=== PATIENT | male | born 1960 | race Caucasian/White ===

== ENCOUNTER 2016-12-25 03:33 | Emergency (ER) | payer BC, OTHER ==
[2016-12-25 03:42] VITALS: BP 156/97; PULSE 82; TEMP 98; BMI 25.8
--- NOTE | 2016-12-25 03:43 | PDOC ---
History of Present Illness - General Chief Complaint: Pain, Acute Stated Complaint: PAIN TO RIGHT SHOULDER Time Seen by Provider: 12/25/16 03:42 History Source: Patient Exam Limitations: No Limitations - History of Present Illness Initial Comments: 12/25/16 03:46 This is a 56-year-old male who comes in complaining of pain radiating down the back of his upper shoulder and the back of his arm. Patient said that it woke him up and that he had a recent prostate biopsy and was told he couldn't take any ibuprofen or anti-inflammatories for one week afterwards. Patient said that the week will be up in 2 days so didn't want to take anything. Patient otherwise denies any ALLERGIES to medication. Patient denies any trauma or injury to the neck or upper back area. Patient denies history of similar pain in the past. Patient denies any chest pain, shortness of breath, nausea, diaphoresis, fever, chills, cough, congestion. PAST MEDICAL HISTORY: no significant history PAST SURGICAL HISTORY: no significant history FAMILY HISTORY: no pertinant history SOCIAL HISTORY: Pt lives with family and is employed. MEDICATIONS: reviewed ALLERGIES: As per nursing notes Review of Systems General: No fevers or chills, no weakness, no weight loss HEENT: No change in vision. No sore throat,. No ear pain CardioVascular: No chest pain or shortness of breath Respiratory:No cough, or wheezing. Gastrointestinal: no nausea, vomitting, diarrhea or constipation, No rectal bleeding Genitourinary: No dysuria, hematuria, or frequency Musculoskeletal: Right upper back and shoulder and arm pain Neurologic: No headache, vertigo, dizziness or loss of consciousness Psychiatric: nor depression Skin: No rashes or easy bruising Endocrine: no increased thirst or abnormal weight change Allergic: no skin or latex allergy All other systems reviewed and normal Exam: General: Well-nourished well-developed individual, no acute distress HEENT: Throat: Normal, tonsils normal, no erythema or exudate Neck: Supple, no meningeal signs, no lymphadenopathy, there is no pain on palpation of the cervical spine. Eyes::Pupils equal reactive and round, extraocular motion intact Chest: Nontender to palpation Cardiac: S1-S2 normal, regular rate and rhythm, no murmurs rubs or gallops Respiratory: Lungs clear to auscultation bilateral Back: There is some tenderness and spasm on palpation of the upper back muscles and posterior shoulder muscles. Extremities: Warm, dry, no cyanosis, clubbing, or edema., There is full range of motion of the shoulder with minimal discomfort. Skin: No rashes Neuro: Alert and oriented x3, nonfocal exam, grossly intact, normal gait Psych: Normal mood and affect Assessment and plan: This is a 56-year-old male who comes in complaining of posterior upper back and posterior shoulder pain radiating down the arm. Patient today for control or history of similar pain in the past. Patient was given a Percocet as he can't take any NSAIDs and told to follow-up with the orthopedist if not improved in a couple a days. Patient discharged home with prescription for an additional 12 Percocet Past History - Past Medical History Allergies/Adverse Reactions: Allergies Allergy/AdvReac Type Severity Reaction Status Date / Time No Known Drug Allergies Allergy Verified 12/25/16 03:34 HAYFEVER Allergy Uncoded 08/02/15 09:06 Home Medications: Ambulatory Orders Tamsulosin HCl [Flomax] 0.4 mg PO DAILY #15 cap.er.24h 08/02/15 Allopurinol [Zyloprim -] 100 mg PO DAILY 12/25/16 Levofloxacin [Levaquin -] 500 mg PO DAILY 12/25/16 Loratadine [Claritin] 10 mg PO DAILY 12/25/16 Oxycodone HCl/Acetaminophen [Percocet 5-325 mg Tablet] 1 - 2 tab PO Q4H #20 tablet MDD 8 12/25/16 Anemia: No Asthma: No Cancer: No Cardiac Disorders: No CVA: No COPD: No CHF: No Dementia: No Diabetes: No GI Disorders: No Disorders: Yes (KIDNEY STONES) HTN: No Hypercholesterolemia: Yes Liver Disease: No Seizures: No Thyroid Disease: No - Surgical History Orthopedic Surgery: Yes (RIGHT ACL REPAIR) - Suicide/Smoking/Psychosocial Hx Smoking History: Former smoker Have you smoked in the past 12 months: No Number of Cigarettes Smoked Daily: 0 Information on smoking cessation initiated: No Hx Alcohol Use: No Drug/Substance Use Hx: No Substance Use Type: None *Physical Exam - Vital Signs Last Vital Signs Temp Pulse Resp BP Pulse Ox 98 F 82 16 156/97 98 12/25/16 03:37 12/25/16 03:37 12/25/16 03:37 12/25/16 03:37 12/25/16 03:37 *DC/Admit/Observation/Transfer Diagnosis at time of Disposition: Cervical radiculopathy - Discharge Dispostion Disposition: HOME Condition at time of disposition: Stable Admit: No - Patient Instructions Additional Instructions: For the pain you can take Percocet one tablet as often as every 4-6 hours if needed. The Percocet will make you drowsy nursing cannot drive or go to work while taking the Percocet. Follow-up with an orthopedist in 3-4 days if not improved. If you need an orthopedist call Dr. Robertson [phone]. Return to the emergency department immediately with ANY new, persistent or worsening symptoms. Continue any medications as previously prescribed by your physician. You should follow up with your primary doctor as soon as possible regarding today's emergency department visit. . Please make sure your doctor reviews the results of your emergency evaluation. Thank you for coming to the Emergency Department today for your care. It was a pleasure to see you today. Please note that your evaluation is INCOMPLETE until you follow-up with your doctor.
== END 2016-12-25 04:02 | disposition home or self-care (01) ==
LOC: FER 03:33
DX: E78.00 Pure hypercholesterolemia, unspecified (principal)
CPT/HCPCS: 99281-25

== ENCOUNTER 2017-04-14 02:34 | Emergency (ER) | payer BC, OTHER ==
[2017-04-14 02:44] VITALS: BP 130/85; PULSE 88; TEMP 98.9; BMI 25.8
--- NOTE | 2017-04-14 02:52 | PDOC ---
History of Present Illness - General Chief Complaint: Cold Symptoms Stated Complaint: DRY COUGH AND BACK PAIN X 2 DAYS - History of Present Illness Initial Comments: 04/14/17 20:43 presents with fever, cough, back pain x 2 days has not taken flu shot no relief with nsaids no dysuria no n/v pmh: denies fhx: noncontrib ros: reviewed and otherwise negative o/e NAD no rash op clear mmm nonicteric no adenopahty cta rrr no murmur abd nontender no cvaty a/p ACE nsiads tamiflu Past History - Past Medical History Allergies/Adverse Reactions: Allergies Allergy/AdvReac Type Severity Reaction Status Date / Time No Known Drug Allergies Allergy Verified 12/25/16 03:34 HAYFEVER Allergy Uncoded 08/02/15 09:06 Home Medications: Ambulatory Orders Tamsulosin HCl [Flomax] 0.4 mg PO DAILY #15 cap.er.24h 08/02/15 Allopurinol [Zyloprim -] 100 mg PO DAILY 12/25/16 Loratadine [Claritin] 10 mg PO DAILY 12/25/16 Oxycodone HCl/Acetaminophen [Percocet 5-325 mg Tablet] 1 - 2 tab PO Q4H #20 tablet MDD 8 12/25/16 levoFLOXacin [Levaquin -] 500 mg PO DAILY 12/25/16 Oseltamivir Phosphate [Tamiflu] 75 mg PO BID 5 Days #10 capsule 04/14/17 Anemia: No Asthma: No Cancer: No Cardiac Disorders: No CVA: No COPD: No CHF: No Dementia: No Diabetes: No GI Disorders: No Disorders: Yes (KIDNEY STONES) HTN: No Hypercholesterolemia: Yes Liver Disease: No Seizures: No Thyroid Disease: No - Surgical History Orthopedic Surgery: Yes (RIGHT ACL REPAIR) - Suicide/Smoking/Psychosocial Hx Smoking History: Former smoker Have you smoked in the past 12 months: No Number of Cigarettes Smoked Daily: 0 Information on smoking cessation initiated: Yes Hx Alcohol Use: No Drug/Substance Use Hx: No Substance Use Type: None *Physical Exam - Vital Signs Last Vital Signs Temp Pulse Resp BP Pulse Ox 98.9 F 88 18 130/85 99 04/14/17 02:39 04/14/17 02:39 04/14/17 02:39 04/14/17 02:39 02/11/18 02:39 *DC/Admit/Observation/Transfer Diagnosis at time of Disposition: Influenza - Discharge Dispostion Disposition: HOME Condition at time of disposition: Good - Prescriptions Prescriptions: Oseltamivir Phosphate [Tamiflu] 75 mg PO BID 5 Days #10 capsule - Referrals - Patient Instructions Printed Discharge Instructions: DI for Viral Upper Respiratory Infection -- Adult - Post Discharge Activity
== END 2017-04-14 02:54 | disposition home or self-care (01) ==
LOC: FER 02:34
DX: J11.1 Influenza due to unidentified influenza virus with other respiratory manifestations (principal); E78.00 Pure hypercholesterolemia, unspecified; Z87.891 Personal history of nicotine dependence; Z87.442 Personal history of urinary calculi
CPT/HCPCS: 99282-25

== ENCOUNTER 2017-07-08 08:55 | Day surgery (SDC) | payer BC, OTHER ==
[2017-07-08 09:26] VITALS: TEMP 97.7
[2017-07-08] MEDS ORDERED: PROMETHAZINE HCL 25 MG/1 ML VIAL IVPUSH PRN (11:42)
[2017-07-08] MEDS ORDERED: ONDANSETRON 4 MG/2 ML VIAL IVPUSH PRN (11:42)
[2017-07-08] MEDS ORDERED: oxyCODONE HCL 5 MG TABLET PO PRN (11:42)
[2017-07-08] MEDS ORDERED: LACTATED RINGERS SOLUTION 1,000 ML IV SCH (11:45)
[2017-07-08] MEDS ORDERED: MIDAZOLAM HCL 2 MG/2 ML SINGLE DOSE VIAL ONE ×2 (11:47)
--- NOTE | 2017-07-08 12:51 | OP ---
Operative Note - Note: Operative Date: 07/08/17 Pre-Operative Diagnosis: Left Kidney stone Operation: Left ESWL Findings: 10 mm mid pole stone left Post-Operative Diagnosis: Same as Pre-op Surgeon: Marcus Law Anesthesia: Fractional
[2017-07-08 15:16] VITALS: BP 110/80; PULSE 70
--- NOTE | 2017-07-08 23:06 | OP ---
DATE OF OPERATION: 07/08/2017 PREOPERATIVE DIAGNOSIS: Left kidney stone. POSTOPERATIVE DIAGNOSIS: Left kidney stone. PROCEDURE: Left extracorporeal shock wave lithotripsy. ATTENDING: Nithin Law M.D. ANESTHESIA: Fractional. OPERATION: Patient was brought in the operating room, placed in a supine position on the operating room table. Ultrasonography and fluoroscopy were performed. A 10-mm left mid pole stone was identified. At this point anesthesia and preoperative antibiotics were administered. Shockwave lithotripsy was then started. 3000 impulses of 20 joules of power were administered to the stone with excellent fragmentation of the stone under real time fluoroscopy and ultrasonography. No complications noted. DISPOSITION: Disposition of the patient to the recovery room. NITHIN QURESHI M.D. [id number]
== END 2017-07-08 13:45 | disposition home or self-care (01) ==
LOC: JASU-SURG 08:55
PROVIDERS: ATTEND Urology
PROC: 0TF4XZZ Fragmentation in Left Kidney Pelvis, External Approach (ICD-10-PCS; principal; 2017-07-08 11:00)
DX: N20.0 Calculus of kidney (principal)

== ENCOUNTER 2018-06-17 08:21 | Day surgery (SDC) | payer BC, OTHER ==
[2018-06-17 08:46] VITALS: BMI 25.8
[2018-06-17 09:35] VITALS: TEMP 97.6
[2018-06-17 10:33] VITALS: BP 121/74; PULSE 65
== END 2018-06-17 10:33 | disposition home or self-care (01) ==
LOC: JASU-ENDO 08:21
PROVIDERS: ATTEND Internal Medicine Gastroenterology
PROC: 0DJD8ZZ Inspection of Lower Intestinal Tract, Via Natural or Artificial Opening Endoscopic (ICD-10-PCS; principal; 2018-06-17 09:00)
DX: Z12.11 Encounter for screening for malignant neoplasm of colon (principal); K57.30 Diverticulosis of large intestine without perforation or abscess without bleeding; K64.8 Other hemorrhoids

== ENCOUNTER 2018-08-15 09:13 | Emergency (ER) | payer BC, OTHER | END 2018-08-15 12:19 | disposition home or self-care (01) | LOC: FER 09:13 ==

== ENCOUNTER 2019-03-24 11:07 | Day surgery (SDC) | payer BC, OTHER ==
[2019-03-20 16:41] VITALS: BMI 26.6
[2019-03-24 14:02] VITALS: TEMP 97.5
[2019-03-24 14:11] VITALS: BP 117/78; PULSE 64
--- NOTE | 2019-03-26 11:40 | PATH ---
Surgical Pathology Report Patient Name: FRANCIS CLINE Med. Rec. #: [id number] /Age/Gender: 1960 (Age: 58) / M Account: [id number] Location: [facility] SURGICAL Taken: 03/24/2019 Received: 03/25/2019 Reported: 03/26/2019 Physicians: Moiz Peña D.O. Specimen(s) Received BODY OF STOMACH Clinical History Upper abdominal pain Postoperative diagnosis: Gastritis Final Diagnosis STOMACH, BODY, BIOPSY: GASTRIC BODY MUCOSA WITH MILD CHRONIC GASTRITIS. IMMUNOHISTOCHEMICAL STAIN FOR H. PYLORI IS NEGATIVE. Electronically Signed Shadia Fairbanks M.D. Gross Description Received in formalin, labeled "biopsy body of stomach" are 3 pérez, irregular portions of soft tissue ranging from 0.1-0.4 cm. in greatest dimension. The specimens are submitted in toto in one cassette. /03/25/2019 saudi03/25/2019
== END 2019-03-24 14:41 | disposition home or self-care (01) ==
LOC: JASU-SURG 11:07
PROVIDERS: ATTEND Internal Medicine Gastroenterology
PROC: 0DB68ZX Excision of Stomach, Via Natural or Artificial Opening Endoscopic, Diagnostic (ICD-10-PCS; principal; 2019-03-24 12:15)
DX: K29.50 Unspecified chronic gastritis without bleeding (principal)

== ENCOUNTER 2019-10-01 20:28 | Emergency (ER) | payer BC, OTHER ==
[2019-10-01] MEDS ORDERED: KETOROLAC TROMETHAMINE 30 MG/1 ML VIAL IM ONE (20:37)
[2019-10-01] MEDS ORDERED: diazePAM 5 MG TABLET PO ONE (20:38)
[2019-10-01] MEDS ORDERED: KETOROLAC TROMETHAMINE 30 MG/1 ML VIAL ONE (20:40)
[2019-10-01] MEDS ORDERED: diazePAM 5 MG TABLET ONE ×2 (20:40→20:44)
[2019-10-01 20:42] VITALS: BP 158/83; PULSE 88; TEMP 97.8; BMI 26.1
--- NOTE | 2019-10-01 21:09 | PDOC ---
Documentation entered by Juan Antonio Pizarro SCRIBE, acting as scribe for Elen Jennings MD. Elen Jennings MD: This documentation has been prepared by the Juarez harper Xhesika, SCRIBE, under my direction and personally reviewed by me in its entirety. I confirm that the documentation accurately reflects all work, treatment, procedures, and medical decision making performed by me. History of Present Illness - General Chief Complaint: Injury Stated Complaint: LOW BACK PAIN History Source: Patient Exam Limitations: No Limitations - History of Present Illness Initial Comments: 10/01/19 20:38 The patient is a 59y/o M with no PMH who presents to the ED with lower back pain since 10:45PM. 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 Pt states he took ibuprofen at around 11AM after the incident, pain subsided for a few minutes but it eventually came back. Pt states his pain radiates down his L leg, is 10/10 in severity, and worse with movements. Pt denies any LE numbness or tingling. Denies any bladder/ urinary incontinence. Allergies: NKDA PCP: Dr. Chatterjee Past History - Medical History Allergies/Adverse Reactions: Allergies Allergy/AdvReac Type Severity Reaction Status Date / Time No Known Drug Allergies Allergy Verified 10/01/19 20:32 HAYFEVER Allergy Uncoded 10/01/19 20:32 Home Medications: Ambulatory Orders Cetirizine HCl [Zyrtec] 10 mg PO ASDIR 10/01/19 Ibuprofen 600 mg PO TID PRN #90 tablet MDD 3 10/01/19 Anemia: No Asthma: No Cancer: No Cardiac Disorders: No CVA: No COPD: No CHF: No DVT: No Dementia: No Diabetes: No Dialysis: No GI Disorders: Yes (Diverticulosis) Disorders: Yes (BPH, KIDNEY STONES) HTN: Yes Hypercholesterolemia: Yes Kidney Stones: Yes Liver Disease: No Psychiatric Problems: No Seizures: No Thyroid Disease: No Lung CA: No - Surgical History Abdominal Surgery: No Appendectomy: No Cardiac Surgery: No Cholecystectomy: No Gastric Stapling: No GI Surgery: No Lung Surgery: No Neurologic Surgery: No Orthopedic Surgery: Yes (RIGHT ACL REPAIR) - Psycho-Social/Smoking History Smoking History: Never smoked Have you smoked in the past 12 months: No Number of Cigarettes Smoked Daily: 0 Information on smoking cessation initiated: No - Substance Abuse Hx (Audit-C & DAST Scrn) How often the patient has a drink containing alcohol: Never Score: In Men: 4 or > Positive; In Women: 3 or > Positive: 0 Screen Result (Pos requires Nsg. Audit-10AR): Negative In the last yr the pt used illegal drug/Rx for NonMed reason: No Score: Yes response is considered Positive: 0 Screen Result (Positive result requires Nsg. DAST-10): Negative Review of Systems - Review of Systems Able to Perform ROS?: Yes Comments:: 10/01/19 20:42 GENERAL/CONSTITUTIONAL: No fever or chills. No weakness. HEAD, EYES, EARS, NOSE AND THROAT: No change in vision. No ear pain or discharge. No sore throat. CARDIOVASCULAR: No chest pain or shortness of breath. RESPIRATORY: No cough, wheezing, or hemoptysis. GASTROINTESTINAL: No nausea, vomiting, diarrhea or constipation. GENITOURINARY: No dysuria, frequency, or change in urination. MUSCULOSKELETAL: No joint or muscle swelling or pain. No neck pain. +Lower back pain radiating down L leg. SKIN: No rash NEUROLOGIC: No headache, vertigo, loss of consciousness, or change in strength/sensation. ENDOCRINE: No increased thirst. No abnormal weight change. HEMATOLOGIC/LYMPHATIC: No anemia, easy bleeding, or history of blood clots. ALLERGIC/IMMUNOLOGIC: No hives or skin allergy. *Physical Exam - Vital Signs Last Vital Signs Temp Pulse Resp BP Pulse Ox 97.8 F 88 16 158/83 98 10/01/19 20:28 10/01/19 20:28 10/01/19 20:28 10/01/19 20:28 10/01/19 20:28 - Physical Exam 10/01/19 20:58 awake alert lungs clear bilat heart rrr no mrg abd soft nt nd ext wwp. no edema. no calf tenderness. skin warm and dry. no midline spinal tenderness. paraspinal muscle spasm left lumbosacral region. 5/5 lower extremity strength. sensation intact bilat . no saddle anesthesia, . alert oriented x 3. gait normal. Medical Decision Making - Medical Decision Making 10/01/19 21:02 59 yo male with no pmhx here wiht low back injury while crawling over elevator at work, felt pop, now pain. happened around 10 am, took motrin last at 11 am. now pain. no new weakness or numbness. no bowel or bladder incontinence. no h/o prior back injury. pain improved with motrin but has since recurred. on exam pt with paraspinal lumbosacral tenderenss to left. n/v intact. plan motrin, muscle relaxer. dc home. fu with pcp. Discharge - Discharge Information Problems reviewed: Yes Clinical Impression/Diagnosis: Low back strain Condition: Improved Disposition: HOME - Follow up/Referral - Patient Discharge Instructions Patient Printed Discharge Instructions: DI for Back Strain or Sprain Additional Instructions: you have strained your back, but your exam today shows no nuerological impairment. you should follow up with your primary doctor. no heavy lifting for one week. take ibuprofen 600 mg every 8 hours as needed for pain. return for any weakness numbness or any concerns. you can apply heat therapy, and over the counter monica benavides or topical pain relief creams. - Post Discharge Activity Work/Back to School Note: Back to Work
== END 2019-10-01 21:14 | disposition home or self-care (01) ==
LOC: SUPCPDRO 20:28 → FER 20:28
PROC: 3E0333Z Introduction of Anti-inflammatory into Peripheral Vein, Percutaneous Approach (ICD-10-PCS; principal; 2019-10-01)
DX: S39.012A Strain of muscle, fascia and tendon of lower back, initial encounter (principal)
CPT/HCPCS: 99284-25

== ENCOUNTER 2020-11-21 04:38 | Day surgery (SDC) | payer BC, OTHER ==
[2020-11-18 13:21] VITALS: BMI 26.5
[2020-11-21] MEDS ORDERED: MIDAZOLAM HCL 2 MG/2 ML SINGLE DOSE VIAL ONE (15:27)
[2020-11-21 17:50] VITALS: BP 115/64; PULSE 65; TEMP 97.6
== END 2020-11-21 17:00 | disposition home or self-care (01) ==
LOC: JASU-SURG 04:38
PROVIDERS: ATTEND Urology
PROC: 0TF3XZZ Fragmentation in Right Kidney Pelvis, External Approach (ICD-10-PCS; principal; 2020-11-21 14:00)
DX: N20.0 Calculus of kidney (principal)